=== PATIENT | female | born 1950 | race Caucasian/White ===

== ENCOUNTER → 2016-08-10 | Outpatient (CLI) | payer BC ==
[~2016-08-10] MED LIST: HCTZ 25MG TAB25 MG PO; LEVOXYL0.1 MG PO; PRINIVIL10 MG PO; PRINIVIL20 MG PO; VIVLODEX5 MG
== END ==
LOC: COL.RAD 08-03 12:45
DX: E04.2 Nontoxic multinodular goiter (principal)

== ENCOUNTER 2017-02-15 10:06 | Emergency (ER) | payer BC ==
[~2017-02-15] VITALS: Ht 190.5 cm; Wt 99.1 kg
[2017-02-15 10:11] VITALS: TEMP 98.4
[2017-02-15] MEDS ORDERED: LEVOXYL0.1 MG PO (10:26)
[2017-02-15] MEDS ORDERED: HCTZ 25MG TAB25 MG PO (10:27)
[2017-02-15] MEDS ORDERED: VIVLODEX5 MG (10:28)
[2017-02-15 11:14] LABS: BASO % 0.4 % (0.0-2.0); EOS # 0.1 (0.0-0.7); EOS % 0.6 % (0-4.0); GRAN # 5.6 (1.4-6.5); GRAN % 70.7 % (42.2-75.2); HEMOGLOBIN 14.5 g/dl (12.5-16.0); LYMPH # 1.8 (1.2-3.4); LYMPH % 22.4 % (20.0-51.0); MEAN CELL VOLUME 85 fl (80.0-100.0); MEAN CORPUSCULAR HEMOGLOBIN 29 pg (27.0-31.0); MEAN CORPUSCULAR HGB CONC 34 g/dl (33.0-37.0); MEAN PLATELET VOLUME 9.5 fl (7.4-10.4); MONO # 0.4 (0.1-0.6); MONO % 5.5 % (1.7-9.3); PLATELET COUNT 225 K/mm3 (130-400); RED BLOOD COUNT 5.06 M/mm3 (4.10-5.30); REDCELL DISTRIBUTION WIDTH-CV 13.5 % (11.5-14.5); WHITE BLOOD COUNT 7.9 K/mm3 (4.8-10.8)
[2017-02-15 11:26] LABS: ADJUSTED CALCIUM 9.2 mg/dL (8.4-10.2); ALANINE AMINOTRANSFERASE 27 U/L (9-52); ALBUMIN 4.3 gm/dL (3.5-5.0); ALKALINE PHOSPHATASE 68 U/L (50-136); ANION GAP 8 mmol/L (7-16); BILIRUBIN,TOTAL 0.6 mg/dL (0.0-1.0); BLOOD UREA NITROGEN 24 mg/dL (7-17); CALCIUM 9.4 mg/dL (8.4-10.2); CARBON DIOXIDE 24 mmol/L (22-30); CHLORIDE 105 mmol/L (98-107); CREATININE, serum 0.65 mg/dL (0.52-1.25); GLUCOSE 119 mg/dL (74-106); POTASSIUM 3.9 mmol/L (3.4-5.0); SODIUM 137 mmol/L (137-145)
[2017-02-15 11:30] LABS: C-REACTIVE PROTEIN < 0.5 mg/dL (0.0-0.9)
[2017-02-15 11:34] LABS: ERYTHROCYTE SEDIMENTATION RATE 1 mm/hr (0-30)
[2017-02-15] MEDS ORDERED: PRINIVIL20 MG PO (12:00)
[2017-02-15] MEDS ORDERED: PRINIVIL10 MG PO (12:05)
[2017-02-15 12:54] VITALS: BP 125/81; PULSE 54
== END 2017-02-15 13:40 | disposition home or self-care (01) ==
LOC: COL.ER 10:06
PROVIDERS: Emergency Medicine
DX: R51 Headache (principal); I10 Essential (primary) hypertension; Z86.69 Personal history of other diseases of the nervous system and sense organs; Z87.891 Personal history of nicotine dependence
CPT/HCPCS: J1170; J2405; J7030

== ENCOUNTER → 2017-06-18 | Outpatient (CLI) | payer BC | LOC: MC.RAD 08:20 | DX: Z12.31 Encounter for screening mammogram for malignant neoplasm of breast (principal) ==

== ENCOUNTER → 2018-08-05 | Outpatient (CLI) | payer MEDICARE, MEDICAID | LOC: MC.RAD 14:18 | DX: Z12.31 Encounter for screening mammogram for malignant neoplasm of breast (principal) ==

== ENCOUNTER 2019-02-04 15:45 | Outpatient (RCR) | payer MEDICARE, MEDICAID | END 2019-02-12 13:23 | disposition home or self-care (01) | LOC: WSOT 15:45 | DX: S82.025D Nondisplaced longitudinal fracture of left patella, subsequent encounter for closed fracture with routine healing (principal); S52.552D Other extraarticular fracture of lower end of left radius, subsequent encounter for closed fracture with routine healing ==

== ENCOUNTER → 2019-09-04 | Outpatient (CLI) | payer MEDICARE, MEDICAID | LOC: MC.RAD 09-02 13:45 | DX: Z12.31 Encounter for screening mammogram for malignant neoplasm of breast (principal) ==

== ENCOUNTER 2019-09-22 15:45 | Outpatient (RCR) | payer MEDICARE, MEDICAID | END 2019-12-08 | disposition home or self-care (01) | LOC: WSC | DX: M54.16 Radiculopathy, lumbar region (principal) ==

== ENCOUNTER → 2020-09-07 | Outpatient (CLI) | payer MEDICARE, MEDICAID ==
[~2020-09-07] MED LIST changes: +MOBIC15 MG PO; +NORVASC 5MG5 MG/TAB PO; -VIVLODEX5 MG; +XALATAN EYE DROPS OD; +ZOLOFT 100MG100 MG PO
== END ==
LOC: MC.RAD 11:00
DX: Z12.31 Encounter for screening mammogram for malignant neoplasm of breast (principal)

== ENCOUNTER 2021-03-30 14:55 | Outpatient (CLI) | payer MEDICARE, MEDICAID ==
[~2021-03-30] VITALS: Ht 190.5 cm; Wt 99.7 kg
[~2021-03-30 14:55] MED LIST changes: -NORVASC 5MG5 MG/TAB PO; -XALATAN EYE DROPS OD; -ZOLOFT 100MG100 MG PO
[2021-03-30 15:30] VITALS: BP 159/98; PULSE 78; TEMP 99.3
[2021-03-30] MEDS ORDERED: NORVASC 5MG5 MG/TAB PO (16:08)
[2021-03-30] MEDS ORDERED: XALATAN EYE DROPS OD (16:09)
[2021-03-30] MEDS ORDERED: ZOLOFT 100MG100 MG PO (16:09)
== END 2021-03-30 16:32 ==
LOC: EUO 14:55
DX: M81.0 Age-related osteoporosis without current pathological fracture (principal); Z79.899 Other long term (current) drug therapy
CPT/HCPCS: J3489

== ENCOUNTER → 2021-10-20 | Outpatient (CLI) | payer MEDICARE, MEDICAID ==
[~2021-10-20] MED LIST changes: +NORVASC 5MG5 MG/TAB PO; +XALATAN EYE DROPS OD; +ZOLOFT 100MG100 MG PO
== END ==
LOC: MC.RAD 10:41
DX: Z12.31 Encounter for screening mammogram for malignant neoplasm of breast (principal); Z00.00 Encounter for general adult medical examination without abnormal findings

== ENCOUNTER 2022-03-29 10:55 | Outpatient (CLI) | payer MEDICARE, MEDICAID ==
[~2022-03-29] VITALS: Ht 190.5 cm; Wt 94.1 kg
[2022-03-29 11:23] VITALS: BP 169/82; PULSE 64; TEMP 98
[2022-03-29] MEDS ORDERED: TOPROL XL 50MG50 MG PO (13:51)
[2022-03-29] MEDS ORDERED: COZAAR 50MG50 MG/TAB PO (13:51)
== END 2022-03-29 13:54 | disposition home or self-care (01) ==
LOC: EUO 10:55
DX: M80.00XA Age-related osteoporosis with current pathological fracture, unspecified site, initial encounter for fracture (principal)
CPT/HCPCS: J3489

== ENCOUNTER → 2023-12-05 | Outpatient (CLI) | payer MEDICARE, MEDICAID ==
[~2023-12-05] MED LIST changes: +COZAAR 50MG50 MG/TAB PO; -LEVOXYL0.1 MG PO; +LEVOXYL0.112 MG PO; +TOPROL XL 50MG50 MG PO; +VITAMIND3 5000 PO
== END ==
LOC: MC.RAD 09:03
DX: Z12.31 Encounter for screening mammogram for malignant neoplasm of breast (principal)